=== PATIENT | male | born 1975 | race Caucasian/White ===

== ENCOUNTER 2018-07-01 17:03 | Emergency (ER) | payer BC ==
[~2018-07-01] VITALS: Ht 182.9 cm; Wt 104.3 kg
[~2018-07-01 17:03] MED LIST: CRUTCH4 USE; HYDACE5 PO; IBUP800 PO
[2018-07-01] MEDS ORDERED: ALLO300 PO (17:08)
[2018-07-01] MEDS ORDERED: Norco 5-325 Ta1 EACH PO (18:00)
== END 2018-07-01 18:09 | disposition home or self-care (01) ==
LOC: ER 17:03
DX: R10.9 Unspecified abdominal pain (principal); F17.210 Nicotine dependence, cigarettes, uncomplicated; W18.09XA Striking against other object with subsequent fall, initial encounter
CPT/HCPCS: 36415; 74177; 99284-25; Q9967

== ENCOUNTER 2023-09-14 09:54 | Day surgery (SDC) | payer OTHER ==
[~2023-09-14] VITALS: Ht 182.9 cm; Wt 98.9 kg
[~2023-09-14 09:54] MED LIST changes: +ALLO300 PO; +IBUP600 PO; +Lactated Ringer's 1,000 ML IV SCH; +METO5A PO; +Norco 5-325 Ta1 EACH PO; +PEPCID40 MG PO
[2023-09-14] MEDS ORDERED: propofoL 40 ML IV ONE (10:10)
[2023-09-14] MEDS ORDERED: ONDA4ODT MM (10:11)
[2023-09-14] MEDS ORDERED: COLCHICINE0.6 MG PO (10:11)
[2023-09-14 10:18] VITALS: BP 114/74
--- NOTE | 2023-09-14 11:17 | NUR ---
09/14/23 1117 Marlyn Arias History, Chart, Medications and Allergies reviewed before start of procedure.MONITOR INTACT WITH CONTINUOUS PULSE OXIMETRY, CONTINUOUS END TITAL CO2, AND INTERMITTENT BLOOD PRESSURE.3-LEAD EKG REVIEWED WITH PHYSICIAN PRIOR TO START OF PROCEDURE.O2 VIA POM INTACT THROUGHOUT SEDATION/PROCEDURE.Bite Block Placed.Eliezer, JOJO providing MAC-see anesthesia record.
[2023-09-14] MEDS ORDERED: propofoL 20 ML IV ONE (11:29)
[2023-09-14 12:05] VITALS: BP 122/82
--- NOTE | 2023-09-14 12:16 | NUR ---
Patient up to Ambulate independently. Gait steady. Patient States Post-Procedure ride home has been arranged. Discharge instructions reviewed with patient. Patient verbalizes understanding. Copy given to patient to take home. Discharged via wheelchair to private car for ride home. ALL BELONGINGS RETURNED TO PT.
== END 2023-09-14 23:15 | disposition home or self-care (01) ==
LOC: ORSCMMR 09:54 → ORD 10:30 → ORSCSDS 10:30 → ORSCMMR 10:30
PROVIDERS: Internal Medicine Gastroenterology
PROC: 0DBK8ZX Excision of Ascending Colon, Via Natural or Artificial Opening Endoscopic, Diagnostic (ICD-10-PCS; principal; 2023-09-14 11:15)
PROC: 0DBN8ZX Excision of Sigmoid Colon, Via Natural or Artificial Opening Endoscopic, Diagnostic (ICD-10-PCS; principal; 2023-09-14 11:15)
PROC: 0DB68ZX Excision of Stomach, Via Natural or Artificial Opening Endoscopic, Diagnostic (ICD-10-PCS; 2023-09-14 11:15)
DX: Z12.11 Encounter for screening for malignant neoplasm of colon (principal); Z13.810 Encounter for screening for upper gastrointestinal disorder; D12.2 Benign neoplasm of ascending colon; D12.5 Benign neoplasm of sigmoid colon; K75.81 Nonalcoholic steatohepatitis (NASH); K74.00 Hepatic fibrosis, unspecified; K74.60 Unspecified cirrhosis of liver; F17.210 Nicotine dependence, cigarettes, uncomplicated; Z79.899 Other long term (current) drug therapy
CPT/HCPCS: J2704; J7120